=== PATIENT | female | born 2000 | race Two or more races ===

== ENCOUNTER 2025-04-14 12:05 | Emergency (ER) | payer OTHER ==
[~2025-04-14] VITALS: Ht 157.5 cm; Wt 65.5 kg
[2025-04-14 13:34] LABS: Urine Protein, UAD Negative (Negative)
--- NOTE | 2025-04-14 14:24 | DVH ---
CLINICAL INDICATION: Pain; R/o fracture TECHNIQUE: 3 radiographic views of the right foot were obtained. Comparison: None FINDINGS/IMPRESSION: Ossific density anterior to the talus bone which may represent avulsive fracture.
[2025-04-14 15:59] VITALS: BP 131/90; PULSE 64; RESP 16; TEMP 98.2; O2SAT 98
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
== END 2025-04-14 16:29 | disposition home or self-care (01) ==
LOC: ER 12:05
DX: S92.191A Other fracture of right talus, initial encounter for closed fracture (principal); M54.59 Other low back pain; M25.531 Pain in right wrist; W18.39XA Other fall on same level, initial encounter; Y93.89 Activity, other specified; Y92.488 Other paved roadways as the place of occurrence of the external cause; Y99.8 Other external cause status
CPT/HCPCS: 73630; 81001; 81025